=== PATIENT | female | born 1985 | race American Indian/Alaskan Native ===

== ENCOUNTER 2018-04-11 13:52 | Emergency (ER) | payer MEDICAID, OTHER ==
[2018-04-11 13:52] VITALS: BMI 19.6
[2018-04-11 13:58] VITALS: RESP 18; O2SAT 100
--- NOTE | 2018-04-11 14:43 | RAD ---
HISTORY: rule out pneumonia COMPARISON: None available. TECHNIQUE: Chest PA and lateral FINDINGS: LUNGS: No focal consolidation. Please note that chest x-ray has limited sensitivity for the detection of pulmonary masses. PLEURA: No significant pleural effusion identified. No definite pneumothorax . CARDIOVASCULAR: Heart size appears within normal limits. No atherosclerotic calcification present. OSSEOUS STRUCTURES: No acute osseous abnormality identified. VISUALIZED UPPER ABDOMEN: Unremarkable. OTHER FINDINGS: None. IMPRESSION: No focal consolidation.
[2018-04-11 15:39] LABS: INFLUENZA A B NEGATIVE FOR FLU A/B (NEGATIVE)
--- NOTE | 2018-04-11 15:40 | C.PDOC ---
History Of Present Illness 32 year old female with no PMHx presents to the ED complaining of sinus congestion and headache with rhinorrhea x 2 weeks. She reports associated sore throat, generalized myalgias, fever, and cough productive of yellow sputum that began 4 days ago. Patient also complains of nausea, but no vomiting or diarrhea. Patient denies any recent travel or known sick contacts. She did not receive a flu shot this season. Otherwise she denies any neck stiffness, visual changes, chest pain, dizziness, SOB, back pain, abdominal pain, urinary symptoms, vomiting, diarrhea, or any other associated symptoms. Time Seen by Provider: 04/11/18 13:57 Chief Complaint (Nursing): Flu-like Symptoms History Per: Patient History/Exam Limitations: no limitations Onset/Duration Of Symptoms: Days Current Symptoms Are (Timing): Still Present Location Of Pain: Throat, Diffuse Myalgias, Headache Sick Contacts (Context): None Associated Symptoms: Fever, Cough, Sputum Past Medical History Reviewed: Historical Data, Nursing Documentation, Vital Signs Vital Signs: Last Vital Signs Temp 99.9 F H 04/11/18 13:56 Pulse 116 H 04/11/18 13:56 Resp 18 04/11/18 13:56 BP 111/75 04/11/18 13:56 Pulse Ox 100 04/11/18 13:56 - Medical History PMH: Bronchitis, Gastritis, GERD Denies: Depression, Chronic Kidney Disease Surgical History: No Surg Hx - [facility] INJECT/INFUSE NEC (07/24/12) Family History: States: Unknown Family Hx - Social History Hx Tobacco Use: No Hx Alcohol Use: Yes Hx Substance Use: Yes (marijuana) - Immunization History Hx Tetanus Toxoid Vaccination: No Hx Influenza Vaccination: No Hx Pneumococcal Vaccination: No Review Of Systems Except As Marked, All Systems Reviewed And Found Negative. Constitutional: Positive for: Fever, Chills, Other (Myalgias) Eyes: Negative for: Vision Change ENT: Positive for: Nose Congestion, Throat Pain Cardiovascular: Negative for: Chest Pain, Palpitations, Light Headedness Respiratory: Positive for: Cough, Sputum (yellow). Negative for: Shortness of Breath, Hemoptysis, Pleuritic Pain Gastrointestinal: Positive for: Nausea. Negative for: Vomiting, Abdominal Pain, Diarrhea Genitourinary: Negative for: Dysuria, Frequency Musculoskeletal: Negative for: Neck Pain, Shoulder Pain, Back Pain Skin: Negative for: Rash Neurological: Positive for: Headache. Negative for: Weakness, Change in Speech, Confusion, Dizziness Physical Exam - Physical Exam Appears: Well, Non-toxic, No Acute Distress Skin: Warm, Dry Head: Atraumatic, Normacephalic, Tenderness (over frontal and maxillary sinuses bilaterally) Eye(s): bilateral: Normal Inspection, PERRL, EOMI Ear(s): Bilateral: Normal Nose: Normal Oral Mucosa: Moist Throat: Normal (no tonsillar swelling), No Erythema, No Exudate Neck: Normal ROM, No Midline Cervical Tenderness, Supple, Other (No meningeal signs) Chest: Symmetrical Cardiovascular: Rhythm Regular, No Murmur Respiratory: Normal Breath Sounds, No Rales, No Rhonchi, No Wheezing Gastrointestinal/Abdominal: Soft, No Tenderness, No Distention Extremity: Bilateral: Atraumatic, Normal Color And Temperature Neurological/Psych: Oriented x3, Normal Speech Gait: Steady ED Course And Treatment - Laboratory Results Urine POC: Negative O2 Sat by Pulse Oximetry: 100 (RA) Pulse Ox Interpretation: Normal - Radiology CXR: Read By Radiologist CXR Interpretation: Yes: No Acute Disease. No: Infiltrates Medical Decision Making Medical Decision Making: Impression: 32 y/o with flu-like symptoms Plan: - Flu swab - Rapid strep test - Urine preg POC - Chest x-ray - Tylenol 650 mg PO - Motrin 400 mg PO Progress/Updates: CXR shows no acute findings. Labs reviewed, flu and strep negative. Pt out of window for tamiflu treatment for flu-like illness. Will treat for sinusitis for 2 weeks of headache, sinus pressure and congestion, with rhinorrhea Patient remains AAOx3, in no acute distress. Repeat vitals show improvement. P atient is stable for discharge home. Patient counseled regarding results. Reports improvement in symptoms with medication, including headache. Plan is to discharge patient home with Rx for Augmentin. Initial dose given in the ED. Diagnostic testing results and plan of care discussed with patient. Strict instructions given regarding prescription use, symptomatic treatment, importance of followup, and signs/symptoms to return to ER including SOB, chest pain, abdominal pain, vomiting, or any other new/worsening symptoms. Pt verbalized understanding of discussion. Patient is A&Ox3, ambulating with steady gait, with vital signs stable for discharge. Disposition Counseled Patient/Family Regarding: Studies Performed, Diagnosis, Need For Followup, Rx Given - Disposition Referrals: [facility] [Outside] Disposition: HOME/ ROUTINE Disposition Time: 15:53 Condition: IMPROVED Additional Instructions: Augmentin twice daily for 10 days Flonase once daily, 2 sprays in each nostril Increase fluids Rest, no strenuous activity Followup with primary doctor within 2 days Return to ER with any new/worsening symptoms Prescriptions: Amoxicillin/Clavulanate [Augmentin 875 MG-125 MG] 1 tab PO Q12H #20 tab Fluticasone Propionate [Flonase] 2 spr NS DAILY #1 bottle Instructions: Sinusitis in Adults, Sinus Headache (DC) Forms: General Discharge Instructions, [facility] ([place]), Work Excuse - POA Present On Arrival: None - Clinical Impression Clinical Impression: Sinusitis, Influenza-like illness - PA / [employer] / Resident Statement MD/DO has reviewed & agrees with the documentation as recorded. - Scribe Statement The provider has reviewed the documentation as recorded by the Bautistaibvicente Alegria All medical record entries made by the Jessica were at my direction and personally dictated by me. I have reviewed the chart and agree that the record accurately reflects my personal performance of the history, physical exam, medical decision making, and the department course for this patient. I have also personally directed, reviewed, and agree with the discharge instructions and disposition.
[2018-04-11 15:44] VITALS: BP 98/62; PULSE 94; TEMP 99.5
[2018-04-11] MEDS ORDERED: Amoxicillin-Clav 875-125 mg Tab PO STA (15:59)
[2018-04-11] MEDS ORDERED: Amoxicillin-Clav 875-125 mg Tab PO ONE (16:06)
== END 2018-04-11 16:14 | disposition home or self-care (01) ==
LOC: C.ER 13:52
DX: J32.9 Chronic sinusitis, unspecified (principal); J11.1 Influenza due to unidentified influenza virus with other respiratory manifestations